=== PATIENT | male | born 1935 | race Caucasian/White ===

== ENCOUNTER 2021-02-22 18:47 | Inpatient (IN) | payer OTHER, BC ==
[~2021-02-22] VITALS: Ht 177.8 cm; Wt 72.4 kg
[2021-02-22 18:49] VITALS: BP 164/106
[2021-02-22 19:51] LABS: ABSOLUTE NEUTROPHILS 6.2 thou/uL (1.4-8.2); BASOPHILS 0.7 % (0.0-2.0); EOSINOPHILS 5.1 % (0.0-3.0); HEMATOCRIT 38.5 % (42.0-52.0); HEMOGLOBIN 12.4 gm/dL (14.0-18.0); LYMPHOCYTES 23.7 % (24.0-44.0); MCH 30.4 pg (26.0-34.0); MCHC 32.3 g/dL (28.0-37.0); PLATELET COUNT 385 thou/uL (150-400); POLYS 59.5 % (36.0-66.0); RDW 13.6 % (10.5-14.5); WBC 10.4 thou/uL (4.0-11.0)
[2021-02-22 19:56] LABS: CALCIUM 9.4 mg/dL (8.5-10.1); CREATININE 1.8 mg/dL (0.7-1.3); POTASSIUM 4.6 mmol/L (3.5-5.1)
[2021-02-22 20:06] LABS: ALBUMIN 3.2 g/dL (3.4-5.0); TOTAL BILIRUBIN 0.3 mg/dL (0.2-1.0)
[2021-02-23] VITALS (7 sets, daily range): BP systolic 103–121; BP diastolic 59–83
[2021-02-23] MEDS ORDERED: SINGULAIR 10 MG10 M1 PO (00:47)
[2021-02-23] MEDS ORDERED: PREDNISONE 10 M10 MG PO (00:47)
[2021-02-23] MEDS ORDERED: PERIDEX 0.12%473 M1 PO (00:47)
[2021-02-23] MEDS ORDERED: SPIRONOLACTONE25 MG PO (00:48)
[2021-02-23] MEDS ORDERED: TAMSULOSIN HCL0.4 MG PO (00:49)
[2021-02-23] MEDS ORDERED: FUROSEMIDE 20 M20 M1 PO (00:49)
--- NOTE | 2021-02-23 04:42 | NUR ---
PT ARRIVED ON CART FROM ER. ADMISSION COMPLETED, CAREPLAN AND INTERVENTIONS SET. CHEST TUBE IN PLACE ON RIGHT SIDE. IVF GTT AND IVPB ANTIBIOTICS STARTED. PT'S MEDICAL RECORDS FROM [facility] IN CHART UNDER H&P. PT EDUCATED ON USE OF CALL LIGHT AND IMPORTANCE OF STAYING IN BED. CALL LIGHT WITHIN REACH AND BED ALARM SET.
--- NOTE | 2021-02-23 07:31 | EKG ---
[address] [place] [address] ELECTROCARDIOGRAM REPORT Name: ALEX LAWSON Room #: 358- ADM IN M.R.#: [id number] Admission: 02/22/21 Attend Phys: Amanda Talbot MD Discharge: Date of : 37 Report #: [id number] [facility] ED Test Date: 2021-02-22 Test Time: 18:56:32 Pat Name: ALEX LAWSON Department: Room: 358 Gender: M Product Management Intern: NICK : 1935 Requested By: Milagros Bui Order Number: [id number] MD: Iglesia Kunz Measurements Intervals [place] Rate: 117 P: 48 SC: 196 QRS: 57 QRSD: 83 T: -30 QT: 302 QTc: 422 Interpretive Statements Sinus tachycardia Abnormal R-wave progression, late transition Borderline T abnormalities, inferior leads No previous ECG available for comparison Electronically Signed On 02-23-2021 7:31:41 CDT by gIlesia Kunz [email or web address] <ELECTRONICALLY SIGNED> By: Iglesia Kunz MD, [facility] 02/23/21 0731 1856 185 Iglesia Kunz MD, FACC /EPI
--- NOTE | 2021-02-23 11:27 | EKG ---
[address] [address] ELECTROCARDIOGRAM REPORT Name: ALEX LAWSON Room #: 358- ADM IN M.R.#: [id number] Admission: 02/22/21 Attend Phys: Amanda Talbot MD Discharge: Date of : 37 Report #: [id number] [facility] ED Test Date: 2021-02-23 Test Time: 00:01:31 Pat Name: ALEX LAWSON Department: Room: 358 P Gender: M Cmv Driver: FIDE : 1935 Requested By: Amanda Talbot Order Number: [id number] MD: Mikey Ramirez Measurements Intervals [place] Rate: 85 P: -6 CT: 206 QRS: -23 QRSD: 87 T: -15 QT: 379 QTc: 451 Interpretive Statements Sinus rhythm Borderline left axis deviation Abnormal R-wave progression, late transition Borderline T abnormalities, inferior leads Baseline wander in lead(s) V2 Compared to ECG 02/22/2021 18:56:32 Sinus tachycardia no longer present T-wave abnormality still present Electronically Signed On 02-23-2021 11:26:54 CDT by Mikey Ramirez [email or web address] <ELECTRONICALLY SIGNED> By: Mikey Ramirez MD, [facility]ACC 02/23/21 1126 0001 0001 Mikey Ramirez MD, [facility] /EPI
[2021-02-23 15:05] LABS: URINE BILIRUBIN NEGATIVE (Negative); URINE BLOOD NEGATIVE (Negative); URINE CLARITY CLEAR; URINE COLOR YELLOW; URINE GLUCOSE-RANDOM* NEGATIVE (Negative); URINE KETONES NEGATIVE (Negative); URINE LEUKOCYTES-REFLEX NEGATIVE (Negative); URINE NITRITE-REFLEX NEGATIVE (Negative); URINE PROTEIN (DIPSTICK) NEGATIVE (Negative); URINE SPECIFIC GRAVITY 1.015 (1.005-1.035); URINE UROBILINOGEN 0.2 E.U./dl (0.2-1.0)
[2021-02-24 04:19] VITALS: BP 125/75
[2021-02-24 04:45] LABS: ABSOLUTE NEUTROPHILS 16.1 thou/uL (1.4-8.2); BASOPHILS 0.1 % (0.0-2.0); EOSINOPHILS 0.1 % (0.0-3.0); HEMATOCRIT 31.9 % (42.0-52.0); LYMPHOCYTES 1.6 % (24.0-44.0); MCH 30.2 pg (26.0-34.0); MCHC 32.2 g/dL (28.0-37.0); MCV 93.6 fL (80.0-100.0); MONOCYTES 3.8 % (1.0-8.0); POLYS 94.4 % (36.0-66.0); RBC 3.41 mil/uL (4.50-6.00); RDW 13.5 % (10.5-14.5)
[2021-02-24 05:06] LABS: ALBUMIN 2.3 g/dL (3.4-5.0); CALCIUM 8.7 mg/dL (8.5-10.1); CREATININE 1.3 mg/dL (0.7-1.3); POTASSIUM 4.3 mmol/L (3.5-5.1); TOTAL BILIRUBIN 0.4 mg/dL (0.2-1.0); TOTAL PROTEIN 6.8 g/dL (6.4-8.2)
[2021-02-24 06:04] LABS: HEMOGLOBIN 10.3 gm/dL (14.0-18.0); PLATELET COUNT 243 thou/uL (150-400)
--- NOTE | 2021-02-24 06:35 | NUR ---
AT APPROX 2200 PT 02 SATS WERE IN 80'S WITH LABORED BREATHING. INCREASED 02 TO 15 NC. 02 SATS INCREASED TO LOW 90'S. PT WAS MOUTH BREATHING DUE TO CLOGGED NOSE. GOT RX FOR AFRIN. SINUS OPENED UP AND 02 SATS INCREASED TO HIGH 90'S. DECREASED 02 TO 8L WHICH IS BASELINE FOR PT WITH O2 SATS AT 94%. PT HAVING PAIN AT CHEST TUBE INSERTION SITE. ATTEMPTED RELIEF WITH TYLENOL WHICH PROVIDED NO RELIEF. RX RECEIVED FOR PO OXYCODONE AND IT PROVIDED SUCCESS AND ALLOWED PT TO SLEEP. CHEST TUBE OUTPUT WAS 460ML. AIR LEAK PRESENT AND DISCOVERED THAT IS LEAKING BELOW INSERTION SITE SOMEWHERE ON THE TUBING CONNECTION SITES.
[2021-02-24 07:19] VITALS: BP 115/65
[2021-02-24 11:11] VITALS: BP 153/78
--- NOTE | 2021-02-24 15:36 | NUR ---
INITIAL ASSESSMENT: SW reviewed chart and spoke with nursing and attending physician. Pt was admitted from home due to pneumothorax. Pt has chest tube in place. Pt is currently on 15L of O2 via NRB mask. Pt is on IV abx. SW met with pt and at bedside. Introduced role of SW. Pt is alert/orientated. Pt's answered questions for pt. Pt and spouse live at home. Prior to admission, pt was using a walker. Pt is normally on 8L of O2. Home O2 provided by [facility]. Pt also has a trilogy. There are 3 steps from the garage into the house. No steps inside. Pt has used HH in the past. No hx of post-acute placement. Pt has done outpatient pulmonary rehab at [facility] and [facility]. Pt's PCP is Dr. Chago Taylor at [facility]. Therapy evals to be ordered when pt is able to participate. SW is following to assist as needed with discharge planning.
[2021-02-24 15:45] VITALS: BP 113/78; BP 177/71
--- NOTE | 2021-02-24 19:33 | NUR ---
PATIENT ADNIT TO [facility] FROM ER, A/O X4. ON 2L/NC. UP AD BRODERICK. WILL KEEP MONITOR.
--- NOTE | 2021-02-24 19:36 | NUR ---
ASSUMED PATIENT CARE AT 0700. DESAT ON 15L/NC IN AM . PATIENT ON NRB AT 1100. ON OPTIFLOW 50L/90% AT 1800. RIGHT CHEST TUBE IN PLACE. LEAKING NOTED. NOT TOWARDS POC GOALS,
[2021-02-24 20:14] VITALS: BP 180/85
--- NOTE | 2021-02-25 04:29 | NUR ---
PT ALERT AND ORIENTED X 4. PT ON OPTIFLOW 50L 90% FIO2. PT C/O OF PAIN AT CHEST TUBE INSERTION SITE. NURSE ADDRESSED AND ADMINISTERED PAIN MEDICATION. NURSE WAS ABLE TO PLACE A BEDPAN FOR PT BUT HE WAS UNABLE TO HAVE A BM. PT QUICKLY DESATS WITH EXERTION BUT IS ABLE TO RECOVER WITH RELAXATION TECHNIQUES. WILL CONTINUE TO MONITOR.
[2021-02-25 07:38] VITALS: BP 81/58
[2021-02-25 08:30] VITALS: BP 122/75
--- NOTE | 2021-02-25 12:24 | HC ---
[facility] [place] [address] CONSULTATION Name: ALXE LAWSON Room #: 358- ADM IN M.R.#: [id number] Admission: 02/22/21 Attend Phys: Amanda Talbot MD Discharge: Date of : 37 Report #: [id number] THIS REPORT FOR: cc: FAM - Family physician unknown FAM - Family physician unknown Aaron Anand MD ~ DATE OF SERVICE: 02/24/2021 ATTENDING PHYSICIAN: Dr. Espitia. REASON FOR EVALUATION: Gram-negative septicemia. HISTORY OF PRESENT SUBJECTIVE: Chart reviewed. The patient examined. This is an 85-year-old gentleman with underlying interstitial lung disease, apparently post-chemotherapy treatment for bladder cancer. As a result of his injury, he is requiring supplemental oxygen at 8 liters per nasal cannula on a continuous basis. He apparently developed some increasing difficulty breathing with sats maintained in the 80s in spite of 15 liters. This prompted utilization of CPAP. Initial chest x-ray was remarkable for a large right tension pneumothorax and near complete lung collapse. Also noted severe widespread bilateral mixed interstitial and alveolar infiltrations ,did undergo a chest tube placement. At this point, he is quite dyspneic and difficult to obtain history. Blood cultures at the time of admission with 1/2 growth of gram-negative chuck, awaiting ID and susceptibility. Urinalysis was otherwise unremarkable. He notes he perhaps had chills, it is not clear whether he had fevers. He had some diminished p.o. intake. Denies GI related complaints, although did voice discomfort with urination; empirically started on therapy with Zosyn. ALLERGIES: None known. CURRENT MEDICATIONS: Include fluticasone, oxycodone, acetylcysteine, tamsulosin, budesonide, prednisone 10 daily, pantoprazole, bupropion, albuterol inhaler, Zosyn, acetaminophen, ondansetron as needed. PAST MEDICAL HISTORY: As described, history of bladder cancer, pulmonary fibrosis, hypertension, BPH, reflux. SOCIAL HISTORY: Nonsmoker, no ethanol, no illicit drug use. FAMILY HISTORY: Noncontributory. REVIEW OF SYSTEMS: Otherwise, unremarkable with the exception noted above, somewhat limited due to his extreme dyspnea. PHYSICAL EXAMINATION: GENERAL: He appears chronically ill, undernourished. [place] [address] CONSULTATION Name: ALEX LAWSON Room #: [address] [place] [address] IN M.R.#: [id number] Admission: 02/22/21 Attend Phys: Amanda Talbot MD Discharge: Date of : 37 Report #: [id number] fairly well. VITAL SIGNS: Temperature 98, pulse 82, respirations 22, blood pressure 115/65. SKIN: Warm, dry. HEENT: Nasal cannula in place, running between 8 and 15 liters. Normocephalic. Extraocular muscles intact. NECK: Supple. LUNGS: Scattered coarse breath sounds bilaterally, right greater than left. HEART: Distant. I do not appreciate a murmur. ABDOMEN: Mildly distended, somewhat firm. No peritoneal signs. Chest tube in place on the right. GENITOURINARY AND RECTAL: Deferred. LABORATORY DATA: Blood cultures just returned polymicrobial growth including Acinetobacter pittii and Staph epidermis. Chest x-ray, right sided thoracostomy tube remains in place with persistent small right lateral apical and medial pneumothorax, extensive subcutaneous emphysema. CBC: White count of 17.0, H and H and H 10.3 and 31.9, platelets of 243. Electrolytes: Sodium 138, potassium 4.3, chloride 104, bicarbonate 20, anion gap of 6, BUN and creatinine 24 and 1.3, glucose of 164, albumin 23, total protein of 6.8. Lactic acid most recently 1.7, peaked at 3.8. ASSESSMENT AND PLAN: Gram-negative septicemia. He does have polymicrobial growth, which raises question about possible false positive or contaminant. We will continue Zosyn empirically for now. Whether he has underlying pneumonitis led to the pneumothorax is not entirely clear. He is quite tenuous at this point, I would not be surprised if he has clinical deterioration. I think his overall prognosis appears quite guarded. <ELECTRONICALLY SIGNED> By: Aaron Anand MD 02/25/21 1224 0918 1146 Aaron Anand MD /nt
[2021-02-25 12:26] VITALS: BP 127/85
[2021-02-25 12:30] VITALS: BP 127/85
[2021-02-25 12:50] LABS: ABSOLUTE NEUTROPHILS 11.8 thou/uL (1.4-8.2); BASOPHILS 0.4 % (0.0-2.0); HEMATOCRIT 36.3 % (42.0-52.0); HEMOGLOBIN 11.7 gm/dL (14.0-18.0); LYMPHOCYTES 1.7 % (24.0-44.0); MCH 30.1 pg (26.0-34.0); MCHC 32.2 g/dL (28.0-37.0); MCV 93.5 fL (80.0-100.0); MONOCYTES 3.9 % (1.0-8.0); PLATELET COUNT 266 thou/uL (150-400); RBC 3.88 mil/uL (4.50-6.00); RDW 13.7 % (10.5-14.5)
[2021-02-25 13:16] LABS: CALCIUM 9.7 mg/dL (8.5-10.1); CREATININE 1.2 mg/dL (0.7-1.3); POTASSIUM 4.8 mmol/L (3.5-5.1)
--- NOTE | 2021-02-25 15:50 | NUR ---
SW reviewed chart and spoke with nursing and attending physician. Pt placed on optiflow and has chest tube in place. Pt is on IV abx. Therapy evals to be ordered when pt is able to participate. SW is following to assist as needed with discharge planning.
[2021-02-25 16:04] VITALS: BP 111/57
[2021-02-25 19:59] VITALS: BP 121/72
[2021-02-26] VITALS (8 sets, daily range): BP systolic 104–136; BP diastolic 69–88
--- NOTE | 2021-02-26 00:19 | NUR ---
PT ALERT AND ORIENTED X4. VSS AFEFEBRILE. SATS 96% ON 10 LF FIO2 65% OPTIFLOW. BE SOUND COARSE AND CRACKLES NOTED. CT TO -20CM SUCTION DRAINING SMALL AMTS SEROSANGINOUS DRAINAGE. NO C/O PAIN. NO S/S RESPIRATORY DISTRESS PRESENTLY. BED DOWN. CALL LIGHT IN REACH. ORAL SUCTION AVAILABLE FOR PT BONIFACIO AT BS.
--- NOTE | 2021-02-26 02:38 | NUR ---
PT'S HTRT BEGAN STAYING ELEVATED AROUND 01:45 THIS AM. SAT 88-94% ON OPTIFLOW 50% LF AND FIO2 65%. ENCOURAGED PT TO BREATHE THROUGH NOSE. PT STATED HE FELT LIKE HIS NOSE WAS BLOCKED. NOTIFIED PRINTING MACHINE OPERATOR Namrata MCDANIEL OF HR FLUCTUATING 120'S -160S. DESATS,AND RIGHT LOBES SOUNDING INCREASINGLY COARSE WITH CT AIR LEAK. EKG DONE AND SHOWN TO PRINTING MACHINE OPERATOR ST-SVT 150. AMIODARONE GTT 150 MG IV GIVEN. STAT PCXRAY DONE. DR MORRISON NOTIFIED ALSO OF THE ABOVE. WILL CALL XRAY TO HIM WHEN COMPLETED.PT STATED HE FEELS A LITTLE BETTER NOW. SATS 94%. HR DOWN TO 110 ON MONITOR. RT NT SUCTIONED PT. PT WATCHING TV.
--- NOTE | 2021-02-26 03:07 | NUR ---
NOTIFIED DR MORRISON OF XRAY RESULTS. WILL KEEP PT HERE FOR NOW ORDERED. HR DOWN TO 109 AFTER AMIODARONE GIVEN IV.
--- NOTE | 2021-02-26 13:52 | NUR ---
SW reviewed chart and spoke with nursing and attending physician. Pt has chest tube in place and is requiring optiflow. Pt is on IV abx. CTS and Cardiology consulted today. Therapy evals to be ordered when pt is able to participate. WATSON is following to assist as needed with discharge planning.
--- NOTE | 2021-02-26 14:54 | NUR ---
assumed care of pt at 0700. pt alert and oriented, tachypneic, requiring optiflo 50L at 65% fio2. elevated HR this morning continued to increase, appearing as afib rvr. phyisician notiifed - cardio consulted. one time lopressor given w/ amio bolus and gtt initiated. CTS consulted. seeing at bedside now and adjusting chest tube due to large air leak. [facility] updated on plan of care. no progress toward poc goals at this time.
--- NOTE | 2021-02-26 15:21 | 2DMMODE ---
[facility] [place] [address] 2 D/M-MODE ECHOCARDIOGRAM Name: ALEX LAWSON Room #: 358-P ADM IN M.R.#: [id number] Admission: 02/22/21 Attend Phys: Amanda Talbot MD Discharge: Date of : 37 Report #: [id number] THIS REPORT FOR: cc: FAM - Family physician unknown FAM - Family physician unknown Eliecer Pak MD ~ APPROVED REPORT Study performed: 02/26/2021 14:31:29 EXAM: Comprehensive 2D, Doppler, and color-flow Echocardiogram Patient Location: Bedside Room #: [facility] Status: routine BSA: 1.95 HR: 87 bpm BP: 117/88 mmHg Rhythm: Irregular Other Information Study Quality: Fair/of axis/poor doppler angles Technically limited study due to heavy fast breathing on BiPAP, sitting up in bed, COPD. Indications Tachycardia, PHTN Hx: CHF, Mobitz I, HTN, PHTN, COPD. 2D Dimensions IVSd: 8.86 (7-11mm) LVOT Diam: 22.13 (18-24mm) LVDd: 41.28 mm PWd: 9.43 (7-11mm) LVDs: 31.26 (25-40mm) Left Atrium: 31.37 (27-40mm) Aortic Root: 40.90 mm Aortic Valve AoV Peak Pedro.: 1.09 m/s AO Peak Gr.: 4.75 mmHg LVOT Max P.15 mmHg LVOT Max V: 0.73 m/s AFTAB Vmax: 2.59 cm2 Mitral Valve E/A Ratio: 0.6 [facility] [address] [place] [address] [address] 2 D/M-MODE ECHOCARDIOGRAM Name: ALEX LAWSON Room #: 358-P [facility].#: [id number] Admission: 02/22/21 Attend Phys: Amanda Talbot MD Discharge: Date of : 37 Report #: [id number] MV Decel. Time: 252.72 ms MV E Max Pedro.: 0.37 m/s MV A Pedro.: 0.63 m/s MV PHT: 73.29 ms Tricuspid Valve TR Peak Pedro.: 3.28 m/s RAP Estimate: 5.00 mmHg TR Peak Gr.: 43.11 mmHg PA Pressure: 48.00 mmHg Left Ventricle The left ventricle is normal size. There is normal left ventricular wall thickness. The left ventricular systolic function is low normal. LVEF is 50%. Mild diastolic dysfunction is present (impaired relaxation pattern). Right Ventricle Appears enlarged on apical 4 view but the view is angled. It is at the upper limits of normal at the very least The right ventricular systolic function is low normal. Atria The left atrium size is normal. The right atrium size is normal. Aortic Valve The Aortic valve is mildly sclerotic. Mild aortic regurgitation. There is no aortic valvular stenosis. Mitral Valve The mitral valve is normal in structure. Trace mitral regurgitation. No evidence of mitral valve stenosis. Tricuspid Valve The tricuspid valve is normal in structure. Mild tricuspid regurgitation. Estimated PAP is 48mmHg. Pulmonic Valve Pulmonic valve is poorly visualized. Great Vessels The sinuses are dilated at 4.1cm. Ascending aorta is poorly visualized. IVC is normal in size and collapses >50% with inspiration. Pericardium [facility] [address] [place] [address] 2 D/M-MODE ECHOCARDIOGRAM Name: ALEX LAWSON Room #: 358-P ADM IN M.R.#: [id number] Admission: 02/22/21 Attend Phys: Amanda Talbot MD Discharge: Date of : 37 Report #: [id number] There is no pericardial effusion. <Conclusion> The left ventricle is normal size. The left ventricle is normal size. LVEF is 50%. Appears enlarged on apical 4 view but the view is angled. It is at the upper limits of normal at the very least The left atrium size is normal. The Aortic valve is mildly sclerotic. Mild aortic regurgitation. The mitral valve is normal in structure. Trace mitral regurgitation. The tricuspid valve is normal in structure. Mild tricuspid regurgitation. Estimated PAP is 48mmHg. Pulmonic valve is poorly visualized. The sinuses are dilated at 4.1cm. Ascending aorta is poorly visualized. There is no pericardial effusion. <ELECTRONICALLY SIGNED> By: Eliecer Pak MD 02/26/21 1521 1521 152 Eliecer Pak MD /INF
--- NOTE | 2021-02-26 15:31 | EKG ---
[place] [address] [facility] [place] [address] ELECTROCARDIOGRAM REPORT Name: ALEX LAWSON Room #: 358-P ADM IN M.R.#: [id number] Admission: 02/22/21 Attend Phys: Amanda Talbot MD Discharge: Date of : 37 Report #: [id number] [facility] Test Date: 2021-02-26 Test Time: 01:36:32 Pat Name: ALEX LAWSON Department: Room: 358 P Gender: M Production Manager: [id number] : 1935 Requested By: Aura Sargent Order Number: [id number] : Mikey Ramirez Measurements Intervals [place] Rate: 151 P: -17 AR: 139 QRS: -7 QRSD: 85 T: -2 QT: 272 QTc: 432 Interpretive Statements AFIB Paired ventricular premature complexes Compared to ECG 02/23/2021 00:01:31 Ventricular premature complex(es) now present Sinus rhythm no longer present T-wave abnormality no longer present Electronically Signed On 02-26-2021 15:31:38 CDT by Mikey Ramirez [email or web address] <ELECTRONICALLY SIGNED> By: Mikey Ramirez MD, [facility] 02/26/21 1531 0136 0136 Mikey Ramirez MD, [facility] /EPI
--- NOTE | 2021-02-26 15:33 | EKG ---
[address] [place] [address] ELECTROCARDIOGRAM REPORT Name: ALEX LAWSON Room #: 358-P ADM IN M.R.#: [id number] Admission: 02/22/21 Attend Phys: Amanda Talbot MD Discharge: Date of : 37 Report #: [id number] [facility] Test Date: 2021-02-26 Test Time: 01:37:22 Pat Name: ALEX LAWSON Department: Room: 358 P Gender: M Tipple Operator: [id number] : 1935 Requested By: Amanda Talbot Order Number: [id number] MD: Mikey Ramirez Measurements Intervals [place] Rate: 136 P: 45 CT: 95 QRS: -19 QRSD: 78 T: 3 QT: 309 QTc: 465 Interpretive Statements Sinus tachycardia Multiform ventricular premature complexes Borderline left axis deviation Abnormal R-wave progression, late transition Compared to ECG 02/26/2021 01:36:32 Supraventricular tachycardia no longer present Electronically Signed On 02-26-2021 15:32:51 CDT by Mikey Ramirez [email or web address] <ELECTRONICALLY SIGNED> By: Mikey Ramirez MD, [facility] 02/26/21 1532 013 6 Mikey Ramirez MD, [facility] /EPI
--- NOTE | 2021-02-26 15:37 | EKG ---
[address] [place] [address] ELECTROCARDIOGRAM REPORT Name: ALEX LAWSON Room #: 358-P ADM IN M.R.#: [id number] Admission: 02/22/21 Attend Phys: Amanda Talbot MD Discharge: Date of : 37 Report #: [id number] [facility] Test Date: 2021-02-26 Test Time: 13:47:39 Pat Name: ALEX LAWSON Department: Room: 358 P Gender: M Sourcing Assistant: : 1935 Requested By: Dang Roberson Order Number: [id number] MD: Mikey Ramirez Measurements Intervals [place] Rate: 85 P: 26 [place]: 185 QRS: -20 QRSD: 86 T: -11 QT: 391 QTc: 465 Interpretive Statements Sinus rhythm Atrial premature complexes Borderline left axis deviation Borderline T abnormalities, inferior leads Compared to ECG 02/26/2021 01:37:22 Atrial premature complex(es) now present T-wave abnormality now present Sinus tachycardia no longer present Ventricular premature complex(es) no longer present Electronically Signed On 02-26-2021 15:37:19 CDT by Mikey Ramirez [email or web address] <ELECTRONICALLY SIGNED> By: Mikey Ramirez MD, [facility] 02/26/21 1537 1347 46 Mikey Ramirez MD, [facility] /EPI
[2021-02-27] VITALS (36 sets, daily range): BP systolic 89–149; BP diastolic 37–89
--- NOTE | 2021-02-27 01:47 | NUR ---
PT ALERT AND ORIENTED X4. PERIODS WHEN HE WAKES UP ANXIOUS NOTED. HE STATED HE WAKES UP FEELING IF HE IS STANDING UP ON TOP OF THE BED AND EVERYTHING IS VERTICAL. NOTIFIED CAN TOP SETTER OF THE ABOVE. AMIODARONE GTT INFUSING AT 16.7 ML /HR ORDERED. HR CONTROLLED SR PRESENTLY. LUNGS STILL SOUND COARSE WITH CRACKLES ON RIGHT SIDE GREATER THAN LEFT SIDE. CT ON RIGHT TO -20 CM SUCTION. PT DESATS AT IMES TO LOW 80S AND RECOVERS TO 90S AFTER ENC TO BREATHE SLOWER AND BREATHE THROUGH NOSE. NO C/O PAIN TONIGHT. WILL CONTINUE TO MONITOR PT FOR CHANGES.
--- NOTE | 2021-02-27 05:46 | NUR ---
LAP MACHINE OPERATOR called for development of right upper chest sub-q air. See LAP MACHINE OPERATOR flowsheet.
[2021-02-27 06:42] LABS: HEMATOCRIT 34.6 % (42.0-52.0); HEMOGLOBIN 11.2 gm/dL (14.0-18.0); MCH 29.8 pg (26.0-34.0); MCHC 32.4 g/dL (28.0-37.0); MCV 92.1 fL (80.0-100.0); RBC 3.76 mil/uL (4.50-6.00); RDW 13.5 % (10.5-14.5); WBC 17.5 thou/uL (4.0-11.0)
[2021-02-27 06:50] LABS: CALCIUM 9.4 mg/dL (8.5-10.1); POTASSIUM 4.3 mmol/L (3.5-5.1)
--- NOTE | 2021-02-27 09:05 | NUR ---
AT APPROXIMATELY 0500 AM PT WAS NOTED TO HAVE INCREASED SWELLING NEAR RIGHT UPPER ANTERIOR CHEST NEAR CT SITE UP TO RIGHT CLAVICLE. SC EMPHYSEMA NOTED. NOTIFED DR MORRISON, CN ABD BIOINFORMATICS SOFTWARE ENGINEER. STAT PCXRAY DONE AND DR MORRISON WAS HERE TO VIEW XRAY. RIGHT CHEST TUBE INSERTED SLIGHTLY FURTHER AND RIGHT CT DRESSING CHANGED. ATIVAN GIVEN FR ANXIETY/ AIR HUNGER. SATS MAINTAINED IN 90S THROUGH OUT PROCEDURE.
[2021-02-27 14:40] LABS: BE(vivo) 7.5 mmol/L (-2 to +3); HCO3 33.9 mmol/L (22.0-26.0); PO2 67.7 mmHg (80.0-100.0); sO2 93.1 % (92.0-98.0)
--- NOTE | 2021-02-27 15:32 | NUR ---
SW reviewed chart and spoke with nursing and attending physician. Pt is requiring optiflow and has chest tube in place. MAINTENANCE AND ENGINEERING MANAGER called during shift leader. Pt with order to transfer to ICU. No weekend discharge planned. WATSON is following to assist as needed with discharge planning.
--- NOTE | 2021-02-27 16:22 | NUR ---
assumed care of pt at 0700. continued air leak in chest tube. increased o2 needs throughout the day. maxed on optiflow and NRB at one point. pulm notified. pt to transfer to ICU. CTS speaking with family at bedside now. waiting for
--- NOTE | 2021-02-27 16:45 | NUR ---
report previously called to [facility]. pt received in icu #[id number] with pneumothorax. resp rate- 32-38 with resp distress at rest. on optiflow- 100% with 40L/nc. pt in sitting position in bed as soon as possible. changed out pleural chest tube atrium with continued large air leak, -40 suction, flucuation of "orange" bellow vasiciating with each breath to the right and left of the set arrow. pt becoming calm, restful with resp in lower 30's after settled in bed.
--- NOTE | 2021-02-27 18:00 | NUR ---
spouse present, then Yola-daughter present. given privacy code, updated on pt status, questions answered.
[2021-02-28] VITALS (85 sets, daily range): BP systolic 62–150; BP diastolic 37–117
[2021-02-28 03:34] LABS: HEMOGLOBIN 11.3 gm/dL (14.0-18.0); MCH 30.2 pg (26.0-34.0); MCHC 32.4 g/dL (28.0-37.0); MCV 93.1 fL (80.0-100.0); RBC 3.75 mil/uL (4.50-6.00); RDW 13.3 % (10.5-14.5); WBC 17.9 thou/uL (4.0-11.0)
[2021-02-28 03:54] LABS: CALCIUM 9.7 mg/dL (8.5-10.1); POTASSIUM 4.4 mmol/L (3.5-5.1)
[2021-02-28 09:08] LABS: BE(vivo) 6.2 mmol/L (-2 to +3); HCO3 33.6 mmol/L (22.0-26.0); PCO2 58.3 mmHg (35.0-45.0); PO2 57.5 mmHg (80.0-100.0); pH 7.378 (7.360-7.450); sO2 88.7 % (92.0-98.0)
--- NOTE | 2021-02-28 17:23 | NUR ---
ASSUMED CARE OF PATIENT FROM [id number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
--- NOTE | 2021-02-28 19:05 | NUR ---
ASSESSMENT CHARTED. PT VERY RESTLESS AND ANXIOUS THIS AM. PRN ATIVAN GIVEN WITH PARTIAL RELIEF. DR. MONTEIRO NOTIFIED. NEW ORDERS NOTED. FAMILY UPDATED ON PT'S PLAN OF CARE AND PROGRESS. CODE STATUS CHANGED PER PT AND FAMILY ERWQUEST. CHEST TUBE IN PLACE WITH LEAK. DR. ACOSTA AND DR. MORRISON AWARE. PT RESTING COMFORTABLE IN BED AT THIS TIME.
[2021-03-01] VITALS (91 sets, daily range): BP systolic 83–130; BP diastolic 38–89
[2021-03-01 03:23] LABS: CALCIUM 9.3 mg/dL (8.5-10.1); CREATININE 0.9 mg/dL (0.7-1.3); POTASSIUM 4.4 mmol/L (3.5-5.1)
[2021-03-01 03:27] LABS: HEMOGLOBIN 10.9 gm/dL (14.0-18.0); MCH 29.6 pg (26.0-34.0); MCV 92.5 fL (80.0-100.0); RBC 3.68 mil/uL (4.50-6.00); RDW 13.3 % (10.5-14.5); WBC 15.6 thou/uL (4.0-11.0)
[2021-03-02] VITALS (50 sets, daily range): BP systolic 90–146; BP diastolic 42–88
[2021-03-02 05:13] LABS: ALBUMIN 2.1 g/dL (3.4-5.0); CALCIUM 9.4 mg/dL (8.5-10.1); POTASSIUM 4.2 mmol/L (3.5-5.1); TOTAL BILIRUBIN 0.3 mg/dL (0.2-1.0); TOTAL PROTEIN 6.9 g/dL (6.4-8.2)
[2021-03-02 05:25] LABS: HEMATOCRIT 32.6 % (42.0-52.0); HEMOGLOBIN 10.8 gm/dL (14.0-18.0); MCH 30.8 pg (26.0-34.0); MCHC 33.1 g/dL (28.0-37.0); MCV 92.9 fL (80.0-100.0); PLATELET COUNT 301 thou/uL (150-400); RBC 3.51 mil/uL (4.50-6.00); RDW 13.6 % (10.5-14.5); WBC 13.3 thou/uL (4.0-11.0)
--- NOTE | 2021-03-02 06:00 | NUR ---
PT RESTING QUIETLY ON BIPAP REMAINS A DNR RIGHT CT 100 CC OUT CONT TO HAVE SUB Q AIR. NOT PROGRESSING TOWARD GOALS
[2021-03-02 09:00] LABS: ATYPICAL LYMPHS 2 %; METAMYELOCYTES 1 %; MYELOCYTES 1 %
--- NOTE | 2021-03-02 10:45 | NUR ---
BEDSIDE SWALLOW STUDY ATTEMPTED. PATIENT NOTED TO DESAT WITH EATING ON OPTIFLOW, TO 83%. PLACED BACK ON BIPAP AT 100% AND SAT RETURNED TO THE LOWER 90'S. WILL CONTINUE TO MONITOR.
--- NOTE | 2021-03-02 11:48 | NUR ---
Nutrition: Plan to try dobhoff placement with bipap. RD recs Jevity 1.5 at 20 ML/hr with slow progression to goal of 55 mL/hr. pt is refeeding syndrome risk
--- NOTE | 2021-03-02 14:30 | NUR ---
Per MD review in AM LOS meeting; patient continues for care for persistent air leak in setting of severe pulmonary fibrosis and per CTS not a surgical candidate at this time. On full face bipap and tolerating well per CTS with 02 sat at 26% and plan is for repeat CRX in the AM. Attending to review overall care and has discussed possible palliative options as both patient and spouse do not wish for patient to be ventilated. CM to follow once seen by palliative care for needs.
--- NOTE | 2021-03-02 17:46 | NUR ---
ATTEMPTED TO INSERT DOBB TOM VIA RT NARE, NASAL CANAL CONGESTED AND BLEEDING EASILY. NOTED TO DESAT WITH THE ATTEMPT. DOBB TOM HELD FOR PRESENT. DR MONTEIRO ROUNDED AND AWARE OF THE SITUATION.
--- NOTE | 2021-03-02 18:27 | NUR ---
PATIENT IS NOT PROGRESSING TOWARDS OUTCOME GOALS HE EASILY DESATS WITH MINIMAL ACTIVITY. PATIENT REFUSES JUNIOR SANTOS AT THIS TIME. PATIENT IS A/O AND AWARE OF HIS SURROUNDINGS.
[2021-03-03] VITALS (17 sets, daily range): BP systolic 78–145; BP diastolic 22–86
[2021-03-03 03:33] LABS: HEMATOCRIT 35.4 % (42.0-52.0); HEMOGLOBIN 11.4 gm/dL (14.0-18.0); MCH 29.8 pg (26.0-34.0); MCHC 32.3 g/dL (28.0-37.0); MCV 92.4 fL (80.0-100.0); RBC 3.83 mil/uL (4.50-6.00); RDW 13.6 % (10.5-14.5); WBC 13.3 thou/uL (4.0-11.0)
[2021-03-03 04:32] LABS: CALCIUM 9.4 mg/dL (8.5-10.1); POTASSIUM 4.2 mmol/L (3.5-5.1)
--- NOTE | 2021-03-03 07:32 | NUR ---
Not progressing toward goals. FiO2 at 100%, pt sat 89-97% depending on anxiety and activity. Pt desaturates with any activity or if Bipap removed for even briefly for mouth care. Urine output for shift 450 cc. Monitor remains sinus rhythm.
--- NOTE | 2021-03-03 10:11 | NUR ---
morphine 2mg administered to keep resp even and unlabored to tolerated eating a few bites of food and taking morning meds. bipap mask removed then replaced when taking bites. well tolerated. watching tv when awake.
--- NOTE | 2021-03-03 12:36 | NUR ---
Per MD review in AM LOS meeting; patient continues for care for persistent air leak in setting of severe pulmonary fibrosis and per CTS not a surgical candidate at this time. Attending reports continuous discussion with family on the complexity of illness and limited options with patients sever underlying lung disease. Surgery still does not be considered and option given the severity of underlying lung disease. Spouse and patient have both voiced not wishing to be intubated previously. At present the patient remains on full face bipap and tolerating and per pulmonology remains the same on high flow )2, fatigued and mildly dyspneic. Attending is continuing to work with spouse on next steps including possible palliative care. CM will continue to follow for discharge once plan of care has been determined.
--- NOTE | 2021-03-03 15:15 | NUR ---
morphine 4mg iv given for potential air hunger related to comfort care. bipap removed, placed on home baseline 10L/nc. family in room providing support. desating with sa02 down to 80.
--- NOTE | 2021-03-03 16:23 | NUR ---
Dr. Espitia discussed with pt family, they are in agreement with comfort care. morphine 4 mg iv given prior to bipap removal, then placed on 10L/high flow NC. resp even and unlabored, slowly desating into lower 80's. family at bedside providing support. additional morphine 6mg iv given with resp even and unlabored. at 1623, pt asystole, no breathing, no apical pulse for one minute. Dr. Espitia notified of pt status, determined . family at bedside for a couple of hours. supported and family. see paperwork, body bagged, called security.
--- NOTE | 2021-03-05 09:42 | HC ---
[facility] [place] [address] CONSULTATION Name: ALEX LAWSON Room #: 246-P [facility] IN M.R.#: [id number] Admission: 02/22/21 Attend Phys: Amanda Talbot MD Discharge: 03/03/21 Date of : 39 Report #: [id number] THIS REPORT FOR: cc: FAM - Family physician unknown FAM - Family physician unknown Manohar Loza ~ DATE OF SERVICE: 02/26/[address] Shorty Sandoval. REASON FOR CONSULTATION: Persistent air leak to right pleural chest tube after placement of chest tube for tension pneumothorax on a patient with pulmonary fibrosis and interstitial lung disease. HISTORY OF PRESENT ILLNESS: The patient was brought in by EMS on 02/22/2021 for shortness of breath and chest pain. He had an episode of coughing which was more increased and frequent than typical, which produced to a progression of right-sided chest wall pain and severe shortness of breath. The patient presented to the Emergency Department with right-sided tension pneumothorax with placement of chest tube in the Emergency Department. The patient was admitted to the hospital and has had a persistent air leak daily. We were consulted on 02/26/2021 for evaluation of persistent air leak. On evaluation, we found the chest tube to be placed on a Pleur-evac, connections were all connected appropriately. The marking of the chest tube was at #12. Chest tube was cleaned thoroughly, advanced another centimeter and is lying at skin site #13. Pleural chest tube was re-taped and placement on an atrium to try to eliminate any potential causes for persistent air leak. After redressing, maneuver of tube and new atrium still consistent with a persistent air leak. The patient is on an Optiflow at 40 liters. He is in moderate distress, but is tolerating well. PAST MEDICAL HISTORY: Chronic interstitial lung disease, on home O2 of 8-10 liters daily. Pulmonary cavitary lesion, hypertension, heart block, Mobitz type 1, osteoarthritis, bladder cancer, essential tremor, pulmonary fibrosis, renal cyst, benign prostatic hypertrophy, pulmonary aspergilloma. PAST SURGICAL HISTORY: Surgeries to elbow and left hernia repair. SOCIAL HISTORY: The patient mobilizes with wheelchair. He is on home O2 at 8-10 liters at home. He quit smoking 50 years ago. Does not entertain any alcoholic beverages or any illicit drugs for that matter. ALLERGIES: No known drug allergies. HOME MEDICATIONS: 1. Spironolactone 25 mg daily. [facility] [address] [place] [address] CONSULTATION Name: ALEX LAWSON Room #: 246-P [facility] IN [facility].#: [id number] Admission: 02/22/21 Attend Phys: Amanda Talbot MD Discharge: 03/03/21 Date of : 39 Report #: [id number] 2. Furosemide 20 mg daily. 3. Singulair 10 mg at bedtime. 4. Chlorhexidine gluconate 0.12%, 473 mL p.o. b.i.d. swish and spit. 5. Prednisone 10 mg daily. REVIEW OF SYSTEMS: The patient does complain of some fatigue, no difficulty sleeping. Denies any headache, dizziness, hearing loss. Does report shortness of breath, dyspnea on exertion, wheezing and coughing which is chronic, but is more exacerbated lately. Chest pain, predominantly related to the coughing episode and post-developing a pneumothorax. Denies any jaw pain, arm pain or murmurs. Denies any skin rashes, psoriasis or eczema. He denies cold feet, night sweats, or lack of concentration. Denies nausea, vomiting, diarrhea or constipation. Denies any urinary frequency, hematuria or dysuria. Denies any seizures or neuropathy. Denies hallucinations, depression or anxiety. Denies lupus, rheumatoid arthritis or celiac disease. PHYSICAL EXAMINATION: VITAL SIGNS: Blood pressure 104/68, pulse rate 91, respiratory rate 30, O2 sats on 40 liters Optiflow 93%. GENERAL: The patient is well developed, well nourished, has normal speech and mentation. HEENT: Eyes are PERRLA. Head is normocephalic. Gaze appearing conjugate in all positions. CARDIAC: Heart sounds, regular rate and rhythm, S1, S2. LUNGS: Show bilateral wheeze with crackles, diminished bases bilaterally with some pleural friction rubs on the right. ABDOMEN: Soft, nontender, bowel sounds present. NEUROLOGIC: Cranial nerves II-XII are examined and intact. The patient is alert and oriented x3. LABORATORY DATA: Done most recent on 02/25/2021, at time of evaluation, sodium 137, potassium 4.8, chloride 101, BUN 16, creatinine 1.2, glucose 167, white blood cell count 13.0, hemoglobin 11.7, hematocrit 36.3, platelets 266. The patient tested COVID negative. Urine test negative. ASSESSMENT AND PLAN: The patient has a persistent air leak with placement of right pleural chest tube, evaluated completely, appears to be adequately sealed but is still leaking with the patient with history of pulmonary fibrosis and interstitial lung disease. Plan discussed with Dr. Sandoval and the patient. The patient does not appear to be a surgical candidate due to not allowing for single lung ventilation due to the pulmonary fibrosis, interstitial lung disease [address] [address] CONSULTATION Name: ALEX LAWSON Room #: 246-P [facility] IN M.R.#: [id number] Admission: 02/22/21 Attend Phys: Amanda Talbot MD Discharge: 03/03/21 Date of : 39 Report #: [id number] and severity. We will continue to follow with pleural chest tube, continued on negative 20 mmHg suction and a chest x-ray in the morning. <ELECTRONICALLY SIGNED> By: DHARA Leary 03/05/21 [id number] DHARA Leary /nt
== END 2021-03-03 16:23 | DRG 871 ==
LOC: ER 18:47 → 3W 22:12 → EROBS 22:12 → 3W 02-23 00:58 → ICU 02-27 16:38
PROVIDERS: Emergency Medicine; Hospitalist; Pediatrics; ADMIT Internal Medicine; ATTEND Internal Medicine
PROC: 5A0935A Assistance with Respiratory Ventilation, Less than 24 Consecutive Hours, High Flow/Velocity Cannula (ICD-10-PCS; principal; 2021-02-22)
PROC: 0W9930Z Drainage of Right Pleural Cavity with Drainage Device, Percutaneous Approach (ICD-10-PCS; principal; 2021-02-22)
PROC: 5A09357 Assistance with Respiratory Ventilation, Less than 24 Consecutive Hours, Continuous Positive Airway Pressure (ICD-10-PCS; principal; 2021-02-22)
PROC: 5A0935A Assistance with Respiratory Ventilation, Less than 24 Consecutive Hours, High Flow/Velocity Cannula (ICD-10-PCS; 2021-02-23)
PROC: 5A0935A Assistance with Respiratory Ventilation, Less than 24 Consecutive Hours, High Flow/Velocity Cannula (ICD-10-PCS; 2021-02-24)
PROC: 5A0935A Assistance with Respiratory Ventilation, Less than 24 Consecutive Hours, High Flow/Velocity Cannula (ICD-10-PCS; 2021-02-25)
PROC: 5A0935A Assistance with Respiratory Ventilation, Less than 24 Consecutive Hours, High Flow/Velocity Cannula (ICD-10-PCS; 2021-02-26)
PROC: 5A0935A Assistance with Respiratory Ventilation, Less than 24 Consecutive Hours, High Flow/Velocity Cannula (ICD-10-PCS; 2021-02-27)
PROC: 0T9B70Z Drainage of Bladder with Drainage Device, Via Natural or Artificial Opening (ICD-10-PCS; 2021-02-27)
PROC: 3E02340 Introduction of Influenza Vaccine into Muscle, Percutaneous Approach (ICD-10-PCS; 2021-02-27)
PROC: 5A0935A Assistance with Respiratory Ventilation, Less than 24 Consecutive Hours, High Flow/Velocity Cannula (ICD-10-PCS; 2021-02-28)
PROC: 5A09357 Assistance with Respiratory Ventilation, Less than 24 Consecutive Hours, Continuous Positive Airway Pressure (ICD-10-PCS; 2021-03-01)
PROC: 5A09457 Assistance with Respiratory Ventilation, 24-96 Consecutive Hours, Continuous Positive Airway Pressure (ICD-10-PCS; 2021-03-02)
DX: A41.1 Sepsis due to other specified staphylococcus (principal); J93.0 Spontaneous tension pneumothorax; J96.21 Acute and chronic respiratory failure with hypoxia; J18.9 Pneumonia, unspecified organism; N17.9 Acute kidney failure, unspecified; E46 Unspecified protein-calorie malnutrition; J44.0 Chronic obstructive pulmonary disease with (acute) lower respiratory infection; Z20.822 Contact with and (suspected) exposure to COVID-19; N40.0 Benign prostatic hyperplasia without lower urinary tract symptoms; K21.9 Gastro-esophageal reflux disease without esophagitis; M19.90 Unspecified osteoarthritis, unspecified site; D64.9 Anemia, unspecified; I11.0 Hypertensive heart disease with heart failure; I27.20 Pulmonary hypertension, unspecified; Z66 Do not resuscitate; I46.9 Cardiac arrest, cause unspecified; I50.9 Heart failure, unspecified; I48.91 Unspecified atrial fibrillation; Z85.51 Personal history of malignant neoplasm of bladder; Z87.891 Personal history of nicotine dependence; Z68.22 Body mass index [BMI] 22.0-22.9, adult; Z51.5 Encounter for palliative care; Z28.21 Immunization not carried out because of patient refusal; Z23 Encounter for immunization
CPT/HCPCS: 10078; 10879